=== PATIENT | female | born 1950 | race Caucasian/White ===

== ENCOUNTER 2017-08-25 13:36 | Observation (INO) ==
[2017-08-25] MEDS ORDERED: Nitroglycerin 0.4 MG TAB.SUBL SL ONE (13:42)
--- NOTE | 2017-08-25 13:52 | Emergency Department Note ---
Disposition Clinical Impression: Chest pain Qualifiers: Chest pain type: unspecified Qualified Code(s): R07.9 - Chest pain, unspecified Disposition: Admitted As Inpatient Condition: Good Chest Pain HPI - General Chief Complaint: ED Chest Pain Stated Complaint: CP/JESSI Time Seen by Provider: 08/25/17 13:41 Source: patient Limitations: no limitations Vital Signs Reviewed: Yes Nursing Notes Reviewed: Yes - History of Present Illness HPI Narrative: 66-year-old female history of hypertension, hyperlipidemia, diabetes, prior [place] without stent, A. fib with ablation who presents to the ER via EMS due to chest pain. Patient states pain began a few hours prior to arrival. Reports abrupt substernal pressure with radiation into her neck. States she still short of breath during that time. No diaphoresis, lightheadedness, nausea or vomiting. Patient was given aspirin in route. She continues to endorse chest pain. No recent illnesses. No other complaints. Pt complaint: chest pain Onset (ago): hour(s) Duration: constant Onset: during rest Pain Location: substernal Severity: moderate Severity scale (1-10): 8 Quality: heaviness Pain Radiation: neck Improves with: nothing Worsens with: nothing Associated symptoms: Reports: dyspnea Treatments prior to arrival chest pain: aspirin - Related Data Home Medications Medication Instructions Recorded Confirmed Albuterol Sulfate [Proair 2 puff IH Q4H PRN 07/06/15 08/25/17 Respiclick] Aspirin Enteric Coated [Aspirin EC] 81 mg PO DAILY 07/06/15 08/25/17 Atenolol [Tenormin] 100 mg PO DAILY 07/06/15 08/25/17 Ergocalciferol (VITAMIN D2) 50,000 unit PO QWEEK 07/06/15 08/25/17 [Vitamin D2 (50,000 UNIT)] Lisinopril [Zestril] 10 mg PO DAILY 07/06/15 08/25/17 Metformin HCl [Glucophage] 1,000 mg PO BID 07/06/15 08/25/17 Mometasone/Formoterol [Dulera 200 1 puff IH BID 07/06/15 08/25/17 Mcg/5 Mcg Inhaler] Niacin [Niaspan] 500 mg PO DAILY 07/06/15 08/25/17 Omeprazole [PriLOSEC] 20 mg PO DAILY 07/06/15 08/25/17 Amitriptyline HCl 200 mg PO HS 08/25/17 08/25/17 Magnesium Oxide [Mag-Ox] 400 mg PO BID 08/25/17 08/25/17 Potassium Chloride 20 meq PO DAILY 08/25/17 08/25/17 Umeclidinium [place] [Incruse 1 puff IH DAILY 08/25/17 08/25/17 Ellipta] Zolpidem [Ambien] 10 mg PO HS 08/25/17 08/25/17 rOPINIRole [Requip] 3 mg PO HS 08/25/17 08/25/17 Allergies Allergy/AdvReac Type Severity Reaction Status Date / Time acetaminophen Allergy Cough Verified 07/06/15 15:41 [From Darvocet-N] codeine Allergy Anaphylaxis Verified 07/06/15 15:41 fentanyl Allergy Cough Verified 07/06/15 15:41 hydrocodone [From Vicodin] Allergy Cough Verified 07/06/15 15:41 Hydromorphone Allergy Cough Verified 07/06/15 15:41 Oxycodone [From Percocet] Allergy Cough Verified 07/06/15 15:41 Penicillins Allergy Anaphylaxis Verified 07/06/15 15:41 propoxyphene Allergy Cough Verified 07/06/15 15:41 [From Darvocet-N] simvastatin [From Zocor] Allergy Cough Verified 07/06/15 15:41 sulfamethoxazole Allergy Cough Verified 07/06/15 15:41 [From Bactrim] tapentadol [From Nucynta] Allergy Cough Verified 07/06/15 15:41 trimethoprim [From Bactrim] Allergy Cough Verified 07/06/15 15:41 tramadol [From Ultram] AdvReac Nausea Verified 05/14/16 07:42 All systems ED: reviewed and negative except as stated. Constitutional: Denies: fever Cardiovascular: Reports: chest pain Respiratory: Reports: dyspnea. Denies: cough Gastrointestinal: Denies: abdominal pain, nausea, vomiting, diarrhea Chest Pain PMH - Past Medical History Medical history: Reports: asthma, COPD, coronary artery disease, CVA, diabetes, GERD, hyperlipidemia, hypertension, myocardial infarction, other Surgical history: Reports: orthopedic, other (Left shoulder repair status post humeral fracture, spinal stimulator for pain control, right hand, right foot surgery), other (Cardiac ablation, lumpectomy) Psychiatric history: Reports: depression CLINICAL TRIAL HEAD history: Reports: bilateral tubal ligation - Social History Smoking Status: Never smoker Alcohol use: Reports: none Drug use: Reports: none Physical Exam - General Limitations: no limitations General appearance: alert, in no apparent distress - Head Head exam: atraumatic, normocephalic - Eye Eye exam: Present: normal appearance - ENT ENT exam: normal exam - Neck Neck exam: Present: normal inspection - Chest Chest inspection: Present: normal inspection, symmetric chest wall rise - Respiratory Respiratory exam: Present: normal lung sounds bilaterally - Cardiovascular Cardiovascular exam: Present: regular rate, normal rhythm, normal heart sounds - Abdominal Exam Abdominal exam: Present: soft, Non-Tender. Absent: tenderness - Extremities Exam Extremities exam: Present: normal inspection, full ROM - Expanded Upper Extremity Exam Shoulder exam: Present: normal inspection, full ROM Arm exam: Present: normal inspection, full ROM Elbow exam: Present: normal inspection, full ROM Forearm/Wrist exam: Present: normal inspection, full ROM Hand exam: Present: normal inspection, full ROM - Expanded Lower Extremity Exam Hip/Pelvis exam: Present: normal inspection, full ROM Upper leg exam: Present: normal inspection, full ROM Knee exam: Present: normal inspection, full ROM Lower leg exam: Present: normal inspection, full ROM Ankle exam: Present: normal inspection, full ROM Foot/toe exam: Present: normal inspection, full ROM - Skin Skin exam: Present: warm, dry, intact Course Course Narrative: seen and examined. Vital signs reviewed. We will get an EKG, chest x- ray as well as labs including troponin. Patient given nitroglycerin here. - Reevaluation(s) Reevaluation #1: Reports mild improvement with her pain after 2 nitroglycerin. Currently complaining of a headache. We will give her Percocet. She has numerous drug allergies to pain medication. She does state that she has been able to take Percocet before. Vital Signs Temperature 98.0 F 08/25/17 13:38 Pulse Rate 80 08/25/17 13:38 Respiratory Rate 18 08/25/17 13:38 Blood Pressure 145/88 08/25/17 13:38 O2 Sat by Pulse Oximetry 96 08/25/17 13:38 Temperature 98.0 F 08/25/17 13:38 Pulse Rate 87 08/25/17 17:23 Respiratory Rate 18 08/25/17 17:33 Blood Pressure 104/85 08/25/17 17:33 O2 Sat by Pulse Oximetry 96 08/25/17 17:23 Oxygen Delivery Oxygen Delivery Room Air Chest Pain - MDM Narrative Medical decision making narrative: 66-year-old female presents to the ER due to chest pain that started this morning. EKG without ischemic findings. Chest x-ray unremarkable. Initial troponin within normal limits. She was given aspirin as well as nitroglycerin here with some improvement of her symptoms. Patient given Percocet for pain. She is admitted to the hospitalist service for chest pain rule out. - Lab Data Lab results reviewed: Yes I reviewed the patient's lab results. Result diagrams: 08/25/17 13:51 08/25/17 13:51 Lab Results 08/25/17 08/25/17 08/25/17 Range/Units 13:51 13:51 13:51 WBC 6.8 (4.3-11.1) K/mcL RBC 4.56 (3.82-4.97) M/mcL Hgb 13.9 (11.5-15.4) g/dL Hct 43.5 (35.3-44.9) % MCV 95.4 (83.0-100.0) fL MCH 30.5 (28.0-33.3) pg MCHC 32.0 (31.6-35.5) g/dL RDW 12.9 (11.5-14.5) % Plt Count 327 (140-400) K/mcL MPV 9.4 (9.4-12.4) fL Immature Gran % 0.4 (0-4) % Seg Neutrophils % 60.3 % Lymphocytes % 28.1 % Monocytes % 6.8 % Eosinophils % 3.7 % Basophils % 0.7 % Neutrophils # 4.1 (1.6-8.9) K/mcL Lymphocytes # 1.9 (0.6-4.6) K/mcL Monocytes # 0.5 (0.0-1.3) K/mcL Eosinophils # 0.3 (0.0-0.6) K/mcL Basophils # 0.1 (0.0-0.2) K/mcL PT 11.2 (9.4-12.1) Seconds INR 1.0 APTT 33.1 (26.0-36.0) Seconds Sodium (136-145) mEq/L Potassium (3.5-5.1) mEq/L Chloride (98-107) mEq/L Carbon Dioxide (23-29) mEq/L BUN (8-23) mg/dL Creatinine (0.60-1.20) mg/dL Est GFR ( Amer) (> 60) Est GFR (Non-Af Amer) (> 60) BUN/Creatinine Ratio (6-26) Glucose (70-105) mg/dL Calculated Osmolality (280-300) Calcium (8.6-10.3) mg/dL Troponin I (< 0.04) ng/mL B-Natriuretic Peptide 64 (Less than 100) pg/mL 08/25/17 08/25/17 Range/Units 13:51 13:51 WBC (4.3-11.1) K/mcL RBC (3.82-4.97) M/mcL Hgb (11.5-15.4) g/dL Hct (35.3-44.9) % MCV (83.0-100.0) fL MCH (28.0-33.3) pg MCHC (31.6-35.5) g/dL RDW (11.5-14.5) % Plt Count (140-400) K/mcL MPV (9.4-12.4) fL Immature Gran % (0-4) % Seg Neutrophils % % Lymphocytes % % Monocytes % % Eosinophils % % Basophils % % Neutrophils # (1.6-8.9) K/mcL Lymphocytes # (0.6-4.6) K/mcL Monocytes # (0.0-1.3) K/mcL Eosinophils # (0.0-0.6) K/mcL Basophils # (0.0-0.2) K/mcL PT (9.4-12.1) Seconds INR APTT (26.0-36.0) Seconds Sodium 140 (136-145) mEq/L Potassium 4.3 (3.5-5.1) mEq/L Chloride 105 (98-107) mEq/L Carbon Dioxide 27 (23-29) mEq/L BUN 14 (8-23) mg/dL Creatinine 0.86 (0.60-1.20) mg/dL Est GFR ( Amer) > 60 (> 60) Est GFR (Non-Af Amer) > 60 (> 60) BUN/Creatinine Ratio 16 (6-26) Glucose 124 H (70-105) mg/dL Calculated Osmolality 292 (280-300) Calcium 9.5 (8.6-10.3) mg/dL Troponin I < 0.03 (< 0.04) ng/mL B-Natriuretic Peptide (Less than 100) pg/mL - Radiology Data Radiology results reviewed: Yes I reviewed the patient's radiology results. Chest X-Ray 08/25/17 13:42 IMPRESSION: No acute cardiopulmonary process. D/ / 08/25/2017 14:39:55 Carlos Sigala MD / Gala Andrea Interpreting Provider: Carlos Sigala MD - EKG Data EKG attestation: Yes I reviewed and interpreted this EKG. EKG results narrative: EKG demonstrates sinus rhythm with rate of 80 bpm. Left axis deviation. Normal intervals. Poor R-wave progression. No gross ST elevations or depressions. No acute ischemic findings. Heart Score - Score History: Moderately Suspicious EKG: Normal Age: 45-65 Risk Factors: Equal/Greater than 3 risk factor or history of atherosclerotic disease Troponin: Less than normal limit HEART Score Total: 4 S.B.A.R. - S.B.ARhett Situation: Demographics, MOA Background: Presenting Complaint, Relevant PMH, Meds, & Allergies Assessment: Course and respsone to treatment, Exam Concerns, Patient/Family Expectation, Pertinant Lab Results Recommendation: Barrier(s) to disposition, Recommendation based on pending studies, treatments, or consults S.B.A.RAlejandro Report Given to: Dr. david Frye Repor Time: 17:08 Attestation Statement - Attestation Attestation: I examined this patient and my medical decision-making was reviewed with the Resident Physician, Dr. Gurrola. I agree with the documented findings, disposition and treatment plan as described except to the extent set forth below. Patient is a 66-year-old white female who presents to the emergency department today with chest pain a few hours prior to arrival. Pain began left-sided and substernal radiating into her neck with some shortness of breath. Patient denies any diaphoresis no nausea vomiting no abdominal pain or flank pain. Patient has a history of diabetes, hypertension, hyperlipidemia, prior [place] with stent placement, and prior A. fib with ablation. I agree with patient's physical exam findings as documented. Given aspirin in route. Patient with pain relief after nitroglycerin here in the ED. EKG showed no acute ischemia. Patient's labs are within normal limits including initial troponin and chest x-ray is unremarkable. Patient will be admitted for further evaluation and management of chest pain.
[2017-08-25 13:57] LABS: Basophils # 0.1 K/mcL (0.0-0.2); Basophils % 0.7 %; Eosinophils # 0.3 K/mcL (0.0-0.6); Eosinophils % 3.7 %; Hematocrit 43.5 % (35.3-44.9); Hemoglobin 13.9 g/dL (11.5-15.4); Immature Granulocytes % 0.4 % (0-4); Lymphocytes # 1.9 K/mcL (0.6-4.6); Lymphocytes % 28.1 %; Mean Corpuscular Hemoglobin 30.5 pg (28.0-33.3); Mean Corpuscular Volume 95.4 fL (83.0-100.0); Mean Platelet Volume 9.4 fL (9.4-12.4); Monocytes # 0.5 K/mcL (0.0-1.3); Monocytes % 6.8 %; Neutrophils # 4.1 K/mcL (1.6-8.9); Platelet Count 327 K/mcL (140-400); Red Blood Count 4.56 M/mcL (3.82-4.97); Red Cell Distribution Width 12.9 % (11.5-14.5); Segmented Neutrophils % 60.3 %
[2017-08-25 14:04] LABS: Prothrombin Time 11.2 Seconds (9.4-12.1)
[2017-08-25 14:06] LABS: Activated Partial Thrombo Time 33.1 Seconds (26.0-36.0)
[2017-08-25 14:11] LABS: BUN/Creatinine Ratio 16 (6-26); Blood Urea Nitrogen 14 mg/dL (8-23); Calcium 9.5 mg/dL (8.6-10.3); Carbon Dioxide 27 mEq/L (23-29); Chloride 105 mEq/L (98-107); Glucose 124 mg/dL (70-105); Osmolality,Calculated 292 (280-300); Potassium 4.3 mEq/L (3.5-5.1); Sodium 140 mEq/L (136-145); eGFR For African Americans > 60 (> 60); eGFR For Non-African Americans > 60 (> 60)
[2017-08-25] MEDS ORDERED: *HR* OxyCODONE/APAP 5/325 TABLET PO ONE (16:29)
[2017-08-25] MEDS ORDERED: Ondansetron 4 MG/2 ML VIAL IVP PRN (19:50)
[2017-08-25] MEDS ORDERED: Naloxone 0.4 MG/ML INJ IVP PRN (19:50)
[2017-08-25] MEDS ORDERED: Nitroglycerin 0.4 MG TAB.SUBL SL PRN (19:55)
--- NOTE | 2017-08-25 20:48 | Internal Med History&Physical ---
Date of Encounter: 08/25/17 Time of Encounter: 20:41 Assessment and Plan (1) Chest pain Current visit: Yes Status: Acute 1 patient had 10 out of 10 chest pain radiating to neck occurring at rest with no aggravating or relieving factors. She has a history of [place] in the past with no stent placement she is diabetic with hypertension initial troponin was negative we will continue to trend troponins 2 continuous cardiac monitoring 3 we will obtain cardiac echo 4 check lipid profile 5 continue aspirin usman, Frank, niacin patient is allergic to statin 6 nitrates as needed for chest pain 7. Consult cardiology as needed- if troponin are negative may do cardiac stress as outpatient Qualifiers: Chest pain type: unspecified Qualified Code(s): R07.9 - Chest pain, unspecified (2) HTN (hypertension) Current visit: Yes Status: Acute Continue lisinopril and metoprolol Qualifiers: Hypertension type: essential hypertension Qualified Code(s): I10 - Essential (primary) hypertension (3) Diabetes mellitus Current visit: Yes Status: Acute We will hold metformin for kin-[id number] before meals and at bedtime with sliding scale insulin Qualifiers: Diabetes mellitus type: type 2 Diabetes mellitus complication status: without complication Diabetes mellitus fdc insulin use: without long term care phlebotomist use Qualified Code(s): E11.9 - Type 2 diabetes mellitus without complications Internal Medicine - H&P: HPI Chief complaint: CP Admitted From: Emergency Dept Plans for Post Hospital Care: Home History of present illness: Ms. Johnson is a 66 year old female past medical history of hypertension hyperlipidemia diabetes A atrial fibrillation with ablation prior [place] without any stents. Patient states she experienced 10/ 10 midsternal chest pressure which radiated into her neck. The pressure occurred at rest there were no aggravating or relieving factors associated symptoms of shortness of breath she denies any diaphoresis lightheadedness nausea or vomiting. The pressure continued throughout the day without relief and she went to the ER for evaluation. Quite ER records lab work was obtained which was unremarkable troponin was negative EKG without any ST-T wave abnormalities chest x-ray with no acute process. She has been admitted for further workup and evaluation. Presently patient continues to experience dull pressure midsternally 7 /10 pain appears to be reproducible upon palpation of chest wall. She is hemodynamically stable at this time. I did review this case with Dr Camarena who agrees with plan Past Med Surg Social Fam HX - Past Medical History Medical history: asthma, COPD, coronary artery disease, CVA, diabetes, GERD, hyperlipidemia, hypertension, myocardial infarction, other Psychiatric history: depression - Past Surgical History Surgical History: orthopedic, other, other - Social History Smoking Status: Never smoker Smokeless Tobacco Status: No Alcohol use: none Drug use: none - Family History Mother Living Status: Hx Family Cardiac Disorders: Yes Grandmother Living Status: Hx Family Endocrine Disorder: Yes (diabetes) Internal Medicine - H&P: Meds Albuterol Sulfate [Proair Respiclick] 2 puff IH Q4H PRN 07/06/15 [History] Aspirin Enteric Coated [Aspirin EC] 81 mg PO DAILY 07/06/15 [History] Atenolol [Tenormin] 100 mg PO DAILY 07/06/15 [History] Ergocalciferol (VITAMIN D2) [Vitamin D2 (50,000 UNIT)] 50,000 unit PO QWEEK 09/19 [History] Lisinopril [Zestril] 10 mg PO DAILY 07/06/15 [History] Metformin HCl [Glucophage] 1,000 mg PO BID 07/06/15 [History] Mometasone/Formoterol [Dulera 200 Mcg/5 Mcg Inhaler] 1 puff IH BID 07/06/15 [ History] Niacin [Niaspan] 500 mg PO DAILY 07/06/15 [History] Omeprazole [PriLOSEC] 20 mg PO DAILY 07/06/15 [History] Amitriptyline HCl 200 mg PO HS 08/25/17 [History] Magnesium Oxide [Mag-Ox] 400 mg PO BID 08/25/17 [History] Potassium Chloride 20 meq PO DAILY 08/25/17 [History] Umeclidinium [place] [Incruse Ellipta] 1 puff IH DAILY 08/25/17 [History] Zolpidem [Ambien] 10 mg PO HS 08/25/17 [History] rOPINIRole [Requip] 3 mg PO HS 08/25/17 [History] 3 Allergy/AdvReac Type Severity Reaction Status Date / Time acetaminophen Allergy Cough Verified 07/06/15 15:41 [From Luna] codeine Allergy Anaphylaxis Verified 07/06/15 15:41 fentanyl Allergy Cough Verified 07/06/15 15:41 hydrocodone [From Vicodin] Allergy Cough Verified 07/06/15 15:41 Hydromorphone Allergy Cough Verified 07/06/15 15:41 Oxycodone [From Percocet] Allergy Cough Verified 07/06/15 15:41 Penicillins Allergy Anaphylaxis Verified 07/06/15 15:41 propoxyphene Allergy Cough Verified 07/06/15 15:41 [From Darvocet-N] simvastatin [From Zocor] Allergy Cough Verified 07/06/15 15:41 sulfamethoxazole Allergy Cough Verified 07/06/15 15:41 [From Bactrim] tapentadol [From Nucynta] Allergy Cough Verified 07/06/15 15:41 trimethoprim [From Bactrim] Allergy Cough Verified 07/06/15 15:41 tramadol [From Ultram] AdvReac Nausea Verified 05/14/16 07:42 All Systems PM: A 10-system review of systems was performed and is negative for pertinent findings except as documented above in the HPI. - Constitutional Constitutional: no chills, no fever(s), no night sweats - EENT Eyes: no change in vision, no discharge, no pain, no photophobia Nose, mouth and throat: no dysphagia, no nasal discharge, no neck pain, no sore throat - Cardiovascular Cardiovascular ROS IM: chest pain, no diaphoresis, no dyspnea, no lightheadedness, no palpitations, no syncope - Respiratory Respiratory: no cough, no dyspnea, no wheezing, no excessive phlegm production - Gastrointestinal Gastrointestinal: no abdominal pain, no diarrhea, no hematemesis, no hematochezia, no melena, no nausea, no vomiting - Genitourinary Genitourinary: no change in urinary stream, no dysuria, no flank pain, no hematuria - Musculoskeletal Musculoskeletal ROS IM: no numbness, no tingling - Integumentary Integumentary IM: no rash, no unusual bruising - Neurological Neurological ROS: no confusion, no convulsions, no focal weakness, no numbness, no tingling, no tremor(s) - Hematologic/Lymphatic Hematologic/Lymphatic: no easy bruising - Constitutional Vitals: Temp Pulse Resp BP Pulse Ox 97.8 F 66 18 81/52 92 08/25/17 20:15 08/25/17 20:15 08/25/17 20:15 08/25/17 20:15 08/25/17 20:15 General appearance: Present: A&O X 3 - Head Head exam: Present: atraumatic, normocephalic - Eye Eye exam: Present: PERRL, conjuntiva pink, sclera anicteric Pupils: Present: PERRL - Neck Neck exam general surgery: Present: supple, trachea midline. Absent: lymphadenopathy - Respiratory Respiratory exam: Present: CTAB. Absent: accessory muscle use, rales, rhonchi, wheezes - Cardiovascular Cardiovascular exam: Present: RRR, +S1, +S2. Absent: diastolic murmur, gallop, rubs, systolic murmur - GI/Abdominal GI/Abdominal exam: Present: normal bowel sounds, soft, no peritoneal signs. Absent: distended, tenderness - Extremities Exam Extremities exam: Present: warm, radial pulses palpable and symmetrical. Absent : calf tenderness, cyanotic, pedal edema - Neurological Exam Neurological exam: Present: CN II-XII intact, oriented X3, no focal deficits. Absent: pronater drift, facial droop, speech deficit - Skin Skin exam: Present: dry, intact Internal Med - H&P Results - Labs CBC & Chem 7: 08/25/17 13:51 08/25/17 13:51 - EKG Data EKG shows normal: sinus rhythm - Diagnostic Studies Other Images Additional comments: Chest X-Ray 08/25/17 13:42 IMPRESSION: No acute cardiopulmonary process. D/ / 08/25/2017 14:39:55 Carlos Sigala MD / Gala Andrea Interpreting Provider: Carlos Sigala MD
[2017-08-25] MEDS ORDERED: *HR* Dextrose 50 % in Water (Syg) 50 ML SYRINGE IVP PRN (20:51)
[2017-08-25] MEDS ORDERED: Dextrose Gel 15 GM/37.5 ML TUBE PO PRN ×2 (20:51)
[2017-08-25] MEDS ORDERED: D5% in Water 1,000 ML IVC PRN (20:51)
[2017-08-25] MEDS ORDERED: GI Cocktail 40 ML EACH PO ONE (21:14)
[2017-08-25] MEDS: Ipratropium/Albuterol Neb 3 ML IH SCH (21:38)
[2017-08-25] MEDS: Magnesium Oxide 400 MG TABLET PO SCH (22:21)
[2017-08-25] MEDS: Insulin LISPRO 300 UNITS/3 ML VIAL SQ SCH (22:23)
[2017-08-26 02:49] LABS: Calcium 8.7 mg/dL (8.6-10.3); Potassium 3.9 mEq/L (3.5-5.1)
[2017-08-26 04:00] LABS: Basophils % 0.5 %; Eosinophils # 0.2 K/mcL (0.0-0.6); Eosinophils % 2.8 %; Hematocrit 37.1 % (35.3-44.9); Immature Granulocytes % 0.4 % (0-4); Lymphocytes # 1.8 K/mcL (0.6-4.6); Lymphocytes % 23.2 %; Mean Corpuscular HGB Conc 32.9 g/dL (31.6-35.5); Mean Corpuscular Hemoglobin 31.2 pg (28.0-33.3); Mean Corpuscular Volume 94.9 fL (83.0-100.0); Mean Platelet Volume 9.6 fL (9.4-12.4); Monocytes # 0.6 K/mcL (0.0-1.3); Monocytes % 8.2 %; Neutrophils # 4.9 K/mcL (1.6-8.9); Platelet Count 309 K/mcL (140-400); Red Blood Count 3.91 M/mcL (3.82-4.97); Red Cell Distribution Width 13.2 % (11.5-14.5); Segmented Neutrophils % 64.9 %
[2017-08-26 04:01] LABS: Hemoglobin 12.2 g/dL (11.5-15.4)
[2017-08-26] MEDS: Ipratropium/Albuterol Neb 3 ML IH SCH ×4 (04:53→22:43)
[2017-08-26] MEDS ORDERED: 0.9 % Sodium Chloride 1,000 ML IVC ONE (07:29)
[2017-08-26] MEDS: Insulin LISPRO 300 UNITS/3 ML VIAL SQ SCH ×4 (08:55→23:30)
[2017-08-26] MEDS ORDERED: Aspirin 81 MG TAB.CHEW ONE (09:03)
[2017-08-26] MEDS: Magnesium Oxide 400 MG TABLET PO SCH ×2 (09:07→23:29)
[2017-08-26] MEDS: Aspirin Enteric Coated 81 MG Tablet PO SCH (11:50)
[2017-08-26] MEDS: Niacin (24 HR) 500 MG TAB.ER.24H PO SCH (11:50)
--- NOTE | 2017-08-26 13:40 | Internal Med Progress Note ---
Date of Encounter: 08/26/17 Time of Encounter: 13:37 - Assessment and plan (1) CAD (coronary artery disease) Current Visit: Yes Status: Acute Assessment and plan: with hx [place]. Now with chest pain that started evening prior to arrival. Serial troponin negative, EKG without acute ST changes. TTE with EF 60%, mild diastolic dysfunction. NPO at midnight. Stress test in the am. Cont home ASA, BB Qualifiers: Coronary Disease-Associated Artery/Lesion type: [place] artery [place] vs. transplanted heart: [place] heart Associated angina: with stable angina Qualified Code(s): I25.118 - Atherosclerotic heart disease of [place] coronary artery with other forms of angina pectoris (2) TONYA (acute kidney injury) Current Visit: No Status: Resolved Assessment and plan: Cr 1.24; baseline normal. Holding home CHANELLE. Gentle IV fluids. Monitor repeat renal function (3) Diabetes mellitus Current Visit: Yes Status: Acute Assessment and plan: per hx. control unknown. Holding home oral glycemic. SSI. Monitor blood sugar and titrate PRN. Hgb A1c pending Qualifiers: Diabetes mellitus type: type 2 Diabetes mellitus complication status: without complication Diabetes mellitus long-term insulin use: without long-term use Qualified Code(s): E11.9 - Type 2 diabetes mellitus without complications (4) HTN (hypertension) Current Visit: Yes Status: Acute Assessment and plan: per hx. BP controlled. Cont home BB. Holding home CHANELLE with TONYA Qualifiers: Hypertension type: essential hypertension Qualified Code(s): I10 - Essential (primary) hypertension (5) Hyperlipidemia Current Visit: Yes Status: Acute Assessment and plan: LDL 139, start statin Qualifiers: Hyperlipidemia type: pure hypercholesterolemia Qualified Code(s): E78.00 - Pure hypercholesterolemia, unspecified; E78.0 - Pure hypercholesterolemia (6) DVT prophylaxis Current Visit: Yes Status: Acute Assessment and plan: heparin - Subjective Interval history: Seen and examined at bedside. Patient is new to me. Information obtained from chart review and patient report. Says she feels well at this time, no further chest pain or pressure. She does report shortness of breath that has been progressive for the past couple weeks. Says she has to stop and catch her breath after only a couple steps. Daughter says patient was recently caring for her sister for the past 3 weeks that she thinks she may have overdone it which is contributing to chest pain. Patient is agreeable for inpatient stress test. - Constitutional Vitals: Temp Pulse Resp BP Pulse Ox 97.8 F 64 17 127/47 96 08/26/17 12:09 08/26/17 12:09 08/26/17 12:09 08/26/17 12:09 08/26/17 12:09 General appearance: Present: A&O X 3, morbidly obese - Head Head exam: Present: atraumatic, normocephalic - Eye Eye exam: Present: PERRL, conjuntiva pink, sclera anicteric Pupils: Present: PERRL - Neck Neck exam general surgery: Present: supple, trachea midline. Absent: lymphadenopathy - Respiratory Respiratory exam: Present: CTAB. Absent: accessory muscle use, rales, rhonchi, wheezes - Cardiovascular Cardiovascular exam: Present: RRR, +S1, +S2. Absent: diastolic murmur, gallop, rubs, systolic murmur - GI/Abdominal GI/Abdominal exam: Present: normal bowel sounds, soft, no peritoneal signs. Absent: distended, tenderness - Extremities Exam Extremities exam: Present: warm, radial pulses palpable and symmetrical. Absent : calf tenderness, cyanotic, pedal edema - Neurological Exam Neurological exam: Present: CN II-XII intact, oriented X3, no focal deficits. Absent: pronater drift, facial droop, speech deficit - Skin Skin exam: Present: dry, intact Internal Medicine: Result - Labs CBC & Chem 7: 08/26/17 03:09 08/26/17 02:21 Labs: Short CBC 08/26/17 Range/Units 03:09 WBC 7.6 (4.3-11.1) K/mcL Hgb 12.2 D (11.5-15.4) g/dL Hct 37.1 (35.3-44.9) % Plt Count 309 (140-400) K/mcL Neutrophils # 4.9 (1.6-8.9) K/mcL BMP 08/26/17 02:21 Sodium 138 Potassium 3.9 Chloride 103 Carbon Dioxide 28 BUN 17 Creatinine 1.24 H Glucose 150 H Calcium 8.7 Cardiac Enzymes 08/25/17 08/26/17 08/26/17 Range/Units 21:38 02:21 07:59 Troponin I < 0.03 < 0.03 < 0.03 (< 0.04) ng/mL - ABG Interpretation ABG results: PT/INR, D-dimer PT 11.2 Seconds (9.4-12.1) 08/25/17 13:51 - Impressions Impressions Echocardiogram 08/26/17 09:00 Impressions: Technically sub-optimal due to poor echocardiographic windows. LVEF 60%. Not all LV segments were well visualized, but overall LVEF appears normal. Mild left ventricular diastolic dysfunction. Normal right ventricular structure and function. No evidence of pulmonary hypertension. No significant valvular dysfunction. Findings: Study Quality * Technically sub-optimal due to poor echocardiographic windows. ECG Findings * Normal sinus rhythm. Left Ventricle * LVEF 60%. * Not all LV segments were well visualized, but overall LVEF appears normal. * Normal LV chamber size. * Mild left ventricular diastolic dysfunction. Right Ventricle * Normal right ventricular structure and function. Left Atrium * Normal left atrial size. Right Atrium * Normal right atrial size. Interatrial Septum * Interatrial septum not well evaluated. Aortic Valve * Trileaflet aortic valve with normal function. * No aortic regurgitation. * No aortic stenosis. Mitral Valve * Normal mitral valve structure and function. * No mitral regurgitation. * No mitral stenosis. Tricuspid Valve * Normal tricuspid valve structure and function. * Trace tricuspid regurgitation. * No evidence of pulmonary hypertension. Pulmonic Valve * Pulmonic valve not well visualized. Aorta * Normally sized aortic root. Pericardium * The pericardium appears normal. IVC * The IVC is not well evaluated. Pulmonary Artery * Pulmonary artery not well visualized. Consult Discharge Plan - Plan Referrals: Macarena Knapp MD [Primary Care Provider] -
[2017-08-26] MEDS: *HR* Heparin 5,000 UNIT/ML VIAL SQ SCH ×2 (14:21→23:34)
[2017-08-27] MEDS: Ipratropium/Albuterol Neb 3 ML IH SCH ×3 (04:39→15:56)
[2017-08-27 05:03] LABS: Hemoglobin A1C 5.7 %
[2017-08-27 05:35] LABS: Chol/HDL Ratio 6.2 (0-4.9)
[2017-08-27 05:36] LABS: BUN/Creatinine Ratio 16 (6-26); Blood Urea Nitrogen 13 mg/dL (8-23); Calcium 8.9 mg/dL (8.6-10.3); Carbon Dioxide 24 mEq/L (23-29); Chloride 109 mEq/L (98-107); Glucose 126 mg/dL (70-105); Osmolality,Calculated 290 (280-300); Potassium 4.1 mEq/L (3.5-5.1); Sodium 139 mEq/L (136-145); eGFR For African Americans > 60 (> 60); eGFR For Non-African Americans > 60 (> 60)
[2017-08-27] MEDS: Aspirin Enteric Coated 81 MG Tablet PO SCH (07:34)
[2017-08-27] MEDS: Insulin LISPRO 300 UNITS/3 ML VIAL SQ SCH ×2 (07:34→11:30)
[2017-08-27] MEDS: Niacin (24 HR) 500 MG TAB.ER.24H PO SCH (07:34)
[2017-08-27] MEDS: Magnesium Oxide 400 MG TABLET PO SCH (07:34)
[2017-08-27] MEDS: *HR* Heparin 5,000 UNIT/ML VIAL SQ SCH ×2 (07:37→13:55)
[2017-08-27] MEDS ORDERED: Regadenoson 0.4 MG/5 ML SYRINGE IVP ONE (08:04)
--- NOTE | 2017-08-27 15:11 | Discharge Summary ---
Date of Encounter: 08/27/17 Time of Encounter: 10:00 - Discharge Diagnosis (1) CAD (coronary artery disease) Priority: Primary Status: Acute Comments: His pain resolved. Stress test negative with an EF of 70%. He was reassessed her modifications. Her pain has resolved. She does not have significant risk factors for DVT/PE in her Well's score argues against this. This may have been musculoskeletal pain. Would recommend she follow-up with her primary care provider if it recurs. Qualifiers: Coronary Disease-Associated Artery/Lesion type: [place] artery [place] vs. transplanted heart: [place] heart Associated angina: with stable angina Qualified Code(s): I25.118 - Atherosclerotic heart disease of [place] coronary artery with other forms of angina pectoris (2) Chest pain Priority: Primary Status: Acute Comments: Resolved Qualifiers: Chest pain type: unspecified Qualified Code(s): R07.9 - Chest pain, unspecified (3) DVT prophylaxis Priority: Secondary Status: Acute (4) Diabetes mellitus Priority: Secondary Status: Acute Comments: NC 5.7. Follow-up with primary care provider. Diabetic diet. Qualifiers: Diabetes mellitus type: type 2 Diabetes mellitus complication status: without complication Diabetes mellitus shelter insulin use: without shelter use Qualified Code(s): E11.9 - Type 2 diabetes mellitus without complications (5) HTN (hypertension) Priority: Secondary Status: Acute Comments: Blood pressure reasonably controlled. Continue current medications. Qualifiers: Hypertension type: essential hypertension Qualified Code(s): I10 - Essential (primary) hypertension (6) Hyperlipidemia Priority: Secondary Status: Acute Comments: LDL is 130 HDL 37, triglycerides elevated at 304. increase her Lipitor to 80 mg by mouth daily and follow-up with a repeat lipid panel in 4 weeks., Qualifiers: Hyperlipidemia type: pure hypercholesterolemia Qualified Code(s): E78.00 - Pure hypercholesterolemia, unspecified; E78.0 - Pure hypercholesterolemia (7) TONYA (acute kidney injury) Priority: Secondary Status: Resolved Comments: Resolved - Discharge Medications Home Medications: Albuterol Sulfate [Proair Respiclick] 2 puff IH Q4H PRN 07/06/15 [History] Aspirin Enteric Coated [Aspirin EC] 81 mg PO DAILY 07/06/15 [History] Atenolol [Tenormin] 100 mg PO DAILY 07/06/15 [History] Ergocalciferol (VITAMIN D2) [Vitamin D2 (50,000 UNIT)] 50,000 unit PO QWEEK 09/19 [History] Lisinopril [Zestril] 10 mg PO DAILY 07/06/15 [History] Metformin HCl [Glucophage] 1,000 mg PO BID 07/06/15 [History] Mometasone/Formoterol [Dulera 200 Mcg/5 Mcg Inhaler] 1 puff IH BID 07/06/15 [ History] Niacin [Niaspan] 500 mg PO DAILY 07/06/15 [History] Omeprazole [PriLOSEC] 20 mg PO DAILY 07/06/15 [History] Amitriptyline HCl 200 mg PO HS 08/25/17 [History] Magnesium Oxide [Mag-Ox] 400 mg PO BID 08/25/17 [History] Potassium Chloride 20 meq PO DAILY 08/25/17 [History] Umeclidinium [place] [Incruse Ellipta] 1 puff IH DAILY 08/25/17 [History] Zolpidem [Ambien] 10 mg PO HS 08/25/17 [History] rOPINIRole [Requip] 3 mg PO HS 08/25/17 [History] Allergies/Adverse Reactions: 3 Allergy/AdvReac Type Severity Reaction Status Date / Time acetaminophen Allergy Cough Verified 07/06/15 15:41 [From Darvocet-N] codeine Allergy Anaphylaxis Verified 07/06/15 15:41 fentanyl Allergy Cough Verified 07/06/15 15:41 hydrocodone [From Vicodin] Allergy Cough Verified 07/06/15 15:41 Hydromorphone Allergy Cough Verified 07/06/15 15:41 Oxycodone [From Percocet] Allergy Cough Verified 07/06/15 15:41 Penicillins Allergy Anaphylaxis Verified 07/06/15 15:41 propoxyphene Allergy Cough Verified 07/06/15 15:41 [From Darvocet-N] simvastatin [From Zocor] Allergy Cough Verified 07/06/15 15:41 sulfamethoxazole Allergy Cough Verified 07/06/15 15:41 [From Bactrim] tapentadol [From Nucynta] Allergy Cough Verified 07/06/15 15:41 trimethoprim [From Bactrim] Allergy Cough Verified 07/06/15 15:41 tramadol [From Ultram] AdvReac Nausea Verified 05/14/16 07:42 Procedures/tests Complete & Pending: Procedures Performed prior 72 hours Category Date Time Status NM екатерина perf SPECT multi [NM] Routine Exams 08/26/17 13:39 Taken ECG 12 lead ECG [ECG] Routine Y 08/25/17 19:47 Completed EV echocardiogram Routine Y 08/26/17 09:00 Completed SP pharm nuclear stress Routine Y 08/26/17 13:38 Completed Date of admission: 08/25/17 17:16 Primary care physician: Macarena Knapp Discharging clinician: Valdemar Botello Anticipated date of discharge: 08/27/17 - Patient Status Disposition: Home, Self-Care Condition: Good Functional capacity at discharge: independent ambulation Overall status at discharge: patient is back to baseline - Discharge Instructions Follow Up With: Macarena Knapp MD [Primary Care Provider] - Interval History: Patient uneventful hospital course. Her pain resolved. She ruled out for myocardial infarction. Stress test showed normal perfusion by EF 70%. We did increase her Lipitor to 80 mg by mouth daily for elevated LDL and triglyceride level. Her blood pressure remained under reasonable control and will continue her beta usman and aspirin. Patient will follow-up with primary care provider. Possibly musculoskeletal. Stress test argues against ischemic pain. Her well' s score is low, therefore does not warrant looking for DVT/PE. Additional discharge stable Hospital course: Ms. Johnson is a 66 year old female - Time Spent with Patient Total time spent providing and/or coordinating discharge services: Less than 30 minutes - Constitutional Vitals: Temp Pulse Resp BP Pulse Ox 97.7 F 77 17 141/68 95 08/27/17 12:07 08/27/17 12:07 08/27/17 12:07 08/27/17 12:07 08/27/17 12:07 General appearance: Present: A&O X 3, morbidly obese
[2017-08-27 15:37] VITALS: BP 138/72
[2017-08-27] MEDS ORDERED: *HR* Metformin 500 MG TABLET PO SCH (21:00)
--- NOTE | 2017-08-28 07:54 | Electrocardiograph Report ---
[place] [id number] Test Date: 2017-08-25 Pat Name: Fallon Johnson Department: 104 Room: [facility] Gender: F Compound Specialist: MIRZA : 1950 Requested By: Avtar Gurrola Order Number: [id number] Reading MD: Mark Lowe MD Measurements Intervals [place] Rate: 80 P: 66 NM: 205 QRS: 12 QRSD: 104 T: 40 QT: 410 QTc: 446 Interpretive Statements SINUS RHYTHM Electronically Signed On 08-28-2017 6:34:28 EST by Mark Lowe MD
== END 2017-08-27 16:09 | disposition home or self-care (01) ==
LOC: 2SOUTHHOLD 13:36 → EMEROO 13:36 → 2SOUTHHOLD 17:53
PROVIDERS: ADMIT Hospitalist; ATTEND Hospitalist

== ENCOUNTER 2021-11-16 17:10 | Observation (INO) ==
[2021-11-16] MEDS ORDERED: Acetaminophen 325 MG TABLET PO PRN (23:55)
[2021-11-16] MEDS ORDERED: Ondansetron 4 MG/2 ML VIAL IVP PRN (23:55)
[2021-11-16] MEDS ORDERED: *HR* Promethazine 25 MG/ML VIAL IM PRN (23:55)
[2021-11-16] MEDS ORDERED: Naloxone 0.4 MG/ML INJ IVP PRN (23:55)
[2021-11-16] MEDS ORDERED: Melatonin 3 MG TABLET PO PRN (23:55)
[2021-11-16] MEDS ORDERED: *HR* OxyCODONE Immed Rel 5 MG TABLET PO PRN (23:55)
[2021-11-16] MEDS ORDERED: *HR* HYDROcodone/Acet 5/325 mg TABLET PO PRN (23:55)
[2021-11-17] MEDS ORDERED: Ipratropium/Albuterol Neb 3 ML IH PRN (00:36)
[2021-11-17] MEDS ORDERED: *HR* Dextrose 50 % in Water (Syg) 50 ML SYRINGE IVP PRN (00:57)
[2021-11-17] MEDS ORDERED: D5% in Water 1,000 ML IVC PRN (00:57)
[2021-11-17] MEDS ORDERED: Dextrose 4 GM Chewable Tablets PO PRN ×2 (00:57)
[2021-11-17] MEDS: Cefepime HCl 2,000 MG in 0.9 % Sodium Chloride 10 ML IVP SCH ×2 (01:01→07:32)
[2021-11-17] MEDS: Acetylcysteine 10% 2 ML INHSOL IH SCH ×5 (01:27→21:07)
[2021-11-17] MEDS: Gabapentin 300 MG CAPSULE PO SCH ×4 (01:53→20:33)
[2021-11-17] MEDS: Insulin DETEMIR 100 UNIT/ML X5UNITS SUBQ SCH ×2 (01:54→20:33)
[2021-11-17 02:14] LABS: Basophils % 0.3 %; Hematocrit 38.7 % (35.3-44.9); Hemoglobin 12.8 g/dL (11.5-15.4); Immature Granulocytes % 1.6 % (0-4); Lymphocytes # 0.5 K/mcL (0.6-4.6); Lymphocytes % 6.8 %; Mean Corpuscular HGB Conc 33.1 g/dL (31.6-35.5); Mean Corpuscular Hemoglobin 28.3 pg (28.0-33.3); Mean Corpuscular Volume 85.4 fL (83.0-100.0); Mean Platelet Volume 10.6 fL (9.4-12.4); Monocytes # 0.5 K/mcL (0.0-1.3); Monocytes % 6.5 %; Neutrophils # 6.5 K/mcL (1.6-8.9); Platelet Count 328 K/mcL (140-400); Red Blood Count 4.53 M/mcL (3.82-4.97); Red Cell Distribution Width 13.3 % (11.5-14.5); Segmented Neutrophils % 84.8 %; White Blood Count 7.7 K/mcL (4.3-11.1)
[2021-11-17 02:34] LABS: INR 1.2; Prothrombin Time 12.9 Seconds (9.4-12.1)
[2021-11-17 02:50] LABS: Alanine Aminotransferase 11 Units/L (7-52); Albumin 3.1 g/dL (3.5-5.7); Albumin/Globulin Ratio 1.4 (1.1-2.2); Alkaline Phosphatase 74 Units/L (34-104); Aspartate Amino Transferase 11 Units/L (13-39); BUN/Creatinine Ratio 28 (6-26); Bilirubin,Total 0.3 mg/dL (0.3-1.0); Blood Urea Nitrogen 22 mg/dL (8-23); Calcium 8.1 mg/dL (8.6-10.3); Carbon Dioxide 24 mEq/L (23-29); Chloride 107 mEq/L (98-107); Chol/HDL Ratio 2.8 (0-4.9); Cholesterol 175 mg/dL (< 200); Globulin 2.2 g/dL (2.4-3.5); Glucose 304 mg/dL (70-105); HDL Cholesterol 63 mg/dL (40-59); LDL Cholesterol,Calculated 91 mg/dL (< 100); Magnesium 1.7 mg/dL (1.6-2.6); Osmolality,Calculated 303 (280-300); Phosphorous 3.7 mg/dL (2.7-4.5); Potassium 3.5 mEq/L (3.5-5.1); Sodium 139 mEq/L (136-145); Total Protein 5.3 g/dL (6.4-8.9); Triglycerides 106 mg/dL (< 150); eGFR For African Americans > 60 (> 60); eGFR For Non-African Americans > 60 (> 60)
[2021-11-17] MEDS: Ipratropium/Albuterol Neb 3 ML IH SCH ×6 (03:42→23:55)
[2021-11-17] MEDS ORDERED: Doxycycline 100 MG in 0.9 % Sodium Chloride Mini Bag 100 ML IVPB SCH (06:00)
[2021-11-17] MEDS: Insulin LISPRO 300 UNITS/3 ML VIAL SUBQ SCH ×3 (06:07→16:55)
[2021-11-17] MEDS ORDERED: Furosemide 40 MG/4 ML VIAL IVP ONE (06:24)
[2021-11-17] MEDS ORDERED: Fluconazole 400 MG/200 ML 400 MG/200 ML BAG IVPB SCH (09:00)
[2021-11-17] MEDS ORDERED: *HR* Succinylcholine 200 MG/10 ML VIAL IVP ONE (13:01)
[2021-11-17] MEDS ORDERED: Lidocaine HCL 4 ML Topical Solution (Laryng-O-Jet Kit Sterile Pak) TP ONE (13:01)
[2021-11-17] MEDS ORDERED: *HR* Midazolam HCl 2 MG/2 ML VIAL ONE (13:01)
[2021-11-17] MEDS ORDERED: *HR* FentaNYL (PF) 100 MCG/2 ML VIAL ONE (13:01)
[2021-11-17] MEDS ORDERED: *HR* Propofol 200 MG/20 ML VIAL IVP ONE (13:01)
[2021-11-17] MEDS ORDERED: Lidocaine -MPF 2% 2 ML VIAL ONE (13:01)
[2021-11-17] MEDS ORDERED: Ondansetron 4 MG/2 ML VIAL ONE (13:01)
[2021-11-17] MEDS: *HR* Heparin 5,000 UNIT/ML VIAL SQ SCH ×2 (16:45→20:34)
[2021-11-17] MEDS: predniSONE 20 MG TABLET PO SCH (16:54)
[2021-11-18] MEDS: Insulin LISPRO 300 UNITS/3 ML VIAL SUBQ SCH ×5 (00:28→16:59)
[2021-11-18 03:21] LABS: Hematocrit 39.6 % (35.3-44.9); Hemoglobin 12.8 g/dL (11.5-15.4); Mean Corpuscular HGB Conc 32.3 g/dL (31.6-35.5); Mean Corpuscular Hemoglobin 27.8 pg (28.0-33.3); Mean Corpuscular Volume 85.9 fL (83.0-100.0); Platelet Count 302 K/mcL (140-400); Red Blood Count 4.61 M/mcL (3.82-4.97); Red Cell Distribution Width 13.5 % (11.5-14.5); White Blood Count 8.6 K/mcL (4.3-11.1)
[2021-11-18 03:39] LABS: BUN/Creatinine Ratio 26 (6-26); Blood Urea Nitrogen 22 mg/dL (8-23); Carbon Dioxide 30 mEq/L (23-29); Chloride 100 mEq/L (98-107); Glucose 304 mg/dL (70-105); Osmolality,Calculated 301 (280-300); Potassium 3.5 mEq/L (3.5-5.1); Sodium 138 mEq/L (136-145); eGFR For African Americans > 60 (> 60); eGFR For Non-African Americans > 60 (> 60)
[2021-11-18] MEDS: Ipratropium/Albuterol Neb 3 ML IH SCH ×6 (04:05→23:39)
[2021-11-18] MEDS: Acetylcysteine 10% 2 ML INHSOL IH SCH ×5 (04:05→23:40)
[2021-11-18] MEDS: *HR* Heparin 5,000 UNIT/ML VIAL SQ SCH ×3 (05:57→21:49)
[2021-11-18] MEDS: predniSONE 20 MG TABLET PO SCH (07:32)
[2021-11-18] MEDS: Gabapentin 300 MG CAPSULE PO SCH ×3 (07:32→21:48)
[2021-11-18] MEDS: levoFLOXacin 750 MG TABLET PO SCH (07:32)
[2021-11-18] MEDS: Insulin DETEMIR 100 UNIT/ML X5UNITS SUBQ SCH (21:49)
[2021-11-19] MEDS: Ipratropium/Albuterol Neb 3 ML IH SCH ×5 (03:31→20:00)
[2021-11-19] MEDS: *HR* Heparin 5,000 UNIT/ML VIAL SQ SCH ×3 (05:19→20:36)
[2021-11-19] MEDS: predniSONE 20 MG TABLET PO SCH (08:46)
[2021-11-19] MEDS: Gabapentin 300 MG CAPSULE PO SCH ×3 (08:46→20:35)
[2021-11-19] MEDS: Insulin LISPRO 300 UNITS/3 ML VIAL SUBQ SCH ×3 (08:46→16:25)
[2021-11-19] MEDS: levoFLOXacin 750 MG TABLET PO SCH (08:46)
[2021-11-19] MEDS: Acetylcysteine 10% 2 ML INHSOL IH SCH ×3 (11:32→20:01)
[2021-11-19] MEDS: Insulin DETEMIR 100 UNIT/ML X5UNITS SUBQ SCH (20:40)
[2021-11-20] MEDS: Ipratropium/Albuterol Neb 3 ML IH SCH ×5 (00:46→15:21)
[2021-11-20] MEDS: Acetylcysteine 10% 2 ML INHSOL IH SCH ×3 (03:57→15:21)
[2021-11-20] MEDS: *HR* Heparin 5,000 UNIT/ML VIAL SQ SCH ×2 (06:31→14:27)
[2021-11-20] MEDS: Insulin LISPRO 300 UNITS/3 ML VIAL SUBQ SCH ×2 (08:07→14:27)
[2021-11-20] MEDS: Gabapentin 300 MG CAPSULE PO SCH ×2 (08:19→14:26)
[2021-11-20] MEDS: levoFLOXacin 750 MG TABLET PO SCH (08:19)
[2021-11-20] MEDS: predniSONE 20 MG TABLET PO SCH (08:19)
[2021-11-20 10:04] VITALS: BP 130/59; PULSE 92; TEMP 97.2; O2SAT 96
== END 2021-11-20 16:25 | disposition home or self-care (01) ==
LOC: 3NENU → SUATTDRO 22:35
PROVIDERS: ADMIT Internal Medicine; ATTEND Internal Medicine
PROC: ENDOBFB (2021-11-17 13:00)